=== PATIENT | female | born 1950 | race Caucasian/White ===

== ENCOUNTER 2016-05-04 17:31 | Inpatient (IN) | payer OTHER ==
[~2016-05-04] VITALS: Ht 167.6 cm; Wt 100.8 kg
[~2016-05-04 17:31] MED LIST: ADVAIR HFA120 INHALA IH; ADVIL200 MG PO; ALBUTEROL SULF8.5 GM IH; ALBUTEROL2.5 MG/3 M IH; ALLERGY EYE DRO10 ML BOTH EYES; APAP PO; ASPIR-LOW81 MG PO; AZITHROMYCIN500 M1 PO; BENTYL10 MG PO; BUSPAR10 MG PO; BUSPIRONE HCL7.5 MG PO; COMPAZINE10 MG PO; CORTIZONE-1028 GM TP; CYCLOBENZAPRINE10 MG PO; DIOVAN160 MG PO; DOXYCYCLINE HY100 M3 PO; DOXYCYCLINE HY100 MG PO; HABITROL,NICODE21 MG PO; HYCET 7.5 MG-3473 ML PO; LASIX40 MG PO; LOPERAMIDE2 M1 PO; MOTRIN IB200 MG PO; NICOTINE PATCH1 EAC1 TD; NICOTINE PATCH1 EAC2 TD; PREDNISONE10 MG PO; PREDNISONE20 MG PO; PREDNISONE50 MG PO; PREVACID30 MG PO; PROPOXY N PO; PROVENTIL,2.5 MG/0.5 IH; PROVENTIL,2.5 MG/3 M IH; SILVADENE20 GM TP; SPIRIVA1 INHALATI IH; VALSARTAN160 MG PO
[2016-05-04 20:31] LABS: HEMATOCRIT 42.2 % (36.0-46.0); MCHC 32.5 G/DL (30.0-36.0); MEAN PLAT.VOLUME 9.6 uM^3 (9.5-12.4); PLATELET COUNT 235 K/uL (156-360); RBC DIS.WIDTH-SD 46.7 % (39-53); WHITE BLOOD COUNT 8.2 K/uL (4.1-10.2)
[2016-05-04 20:32] LABS: MCV 86.1 FL (83-99)
[2016-05-04 20:39] LABS: CHLORIDE 103 mEq/L (99-109); POTASSIUM 4.6 mEq/L (3.7-5.4); SODIUM 140 mEq/L (136-147)
[2016-05-04 20:41] LABS: GLUCOSE 138 mg/dL (70-99)
[2016-05-04 20:42] LABS: ANION GAP 13 MEQ/L (2-14)
[2016-05-04 20:44] LABS: GFR ESTIMATE (CALCULATED) > 59 mL/min/
[2016-05-04 20:45] LABS: UREA NITROGEN (BUN) 15 mg/dL (9-23)
[2016-05-04] MEDS ORDERED: SPIRIVA1 INHALATI IH (20:47)
[2016-05-05 03:00] VITALS: BP 134/67
[2016-05-05 05:15] LABS: METH RESISTANT S AUREUS PCR NEGATIVE (NEGATIVE)
[2016-05-05 05:20] LABS: PROBE CHECK PASS; SPECIMEN PROCESSING CONTROL PASS
[2016-05-05 08:01] VITALS: BP 114/68
[2016-05-05 16:21] VITALS: BP 165/78
[2016-05-05 23:40] VITALS: BP 119/63
[2016-05-06 08:32] VITALS: BP 115/56
[2016-05-06 15:51] VITALS: BP 120/57
[2016-05-06 23:57] VITALS: BP 127/76
[2016-05-07 06:09] LABS: EOSINOPHIL (%) 2.8 % (0-5); EOSINOPHIL COUNT 0.1 K/uL (0-0.3); HEMATOCRIT 38.7 % (36.0-46.0); IMMATURE GRANULOCYTE (%) 0.2 % (0.0-0.7); LYMPHOCYTE COUNT 0.6 K/uL (1.0-2.8); MCH 27.7 PG (29.0-34.0); MCV 86.4 FL (83-99); MEAN PLAT.VOLUME 9.7 uM^3 (9.5-12.4); MONOCYTE (%) 10.4 % (3-12); MONOCYTE COUNT 0.5 K/uL (0-0.8); NEUTROPHIL (%) 74.8 % (45-76); NEUTROPHIL COUNT 3.7 K/uL (1.8-6.4); PLATELET COUNT 171 K/uL (156-360); RBC DIS.WIDTH-CV 15.2 % (11.8-14.6); RBC DIS.WIDTH-SD 47.7 % (39-53); RED BLOOD COUNT 4.48 M/uL (3.80-5.20)
[2016-05-07 06:25] LABS: ANION GAP 8 MEQ/L (2-14); CHLORIDE 101 MEQ/L (99-109); GFR ESTIMATE (CALCULATED) > 59 mL/min/; GLUCOSE 115 mg/dL (70-99); SAMPLE HEMOLYSIS CHECK 0; SAMPLE ICTERIC CHECK 0; SAMPLE LIPEMIA CHECK 0; SODIUM 137 MEQ/L (136-147); UREA NITROGEN (BUN) 12 mg/dL (9-23)
[2016-05-07 08:05] VITALS: BP 133/60
[2016-05-07 15:36] VITALS: BP 105/54
[2016-05-07] MEDS ORDERED: NICOTINE PATCH1 EAC2 TD (15:48)
[2016-05-07] MEDS ORDERED: HYDROMORPHONE HC4 MG PO (15:48)
== END 2016-05-07 16:54 | disposition home or self-care (01) | DRG 543 ==
LOC: EME 17:31 → 4SOUTH 21:13 → EDOF 21:13 → 4SOUTH 05-05 02:26
PROVIDERS: Internal Medicine; Nurse Practitioner Family
DX: C79.51 Secondary malignant neoplasm of bone (principal); C77.9 Secondary and unspecified malignant neoplasm of lymph node, unspecified; E11.40 Type 2 diabetes mellitus with diabetic neuropathy, unspecified; C34.92 Malignant neoplasm of unspecified part of left bronchus or lung; R13.10 Dysphagia, unspecified; Z99.81 Dependence on supplemental oxygen; K92.1 Melena; G89.3 Neoplasm related pain (acute) (chronic); J44.9 Chronic obstructive pulmonary disease, unspecified; M25.551 Pain in right hip; I10 Essential (primary) hypertension; K21.9 Gastro-esophageal reflux disease without esophagitis; F17.210 Nicotine dependence, cigarettes, uncomplicated; M85.80 Other specified disorders of bone density and structure, unspecified site; Z92.3 Personal history of irradiation; E66.9 Obesity, unspecified; Z68.35 Body mass index [BMI] 35.0-35.9, adult
CPT/HCPCS: 71020; 73502; 74177; 77290; 80048; 81003; 82272; 85025; 85027; 87641; 94640; 94640 76; 94799; 99202; 99281; 99285; G0378; J1170; J1650; J3010